=== PATIENT | female | born 1990 | race Caucasian/White ===

== ENCOUNTER 2019-06-30 20:56 | Inpatient (IN) | payer MEDICAID ==
[~2019-06-30] VITALS: Ht 160 cm; Wt 61.4 kg
[2019-07-02 14:50] VITALS: BP 128/86
== END 2019-07-02 15:05 | disposition home or self-care (01) | DRG 807 ==
LOC: LDOP 20:56 → LDIP 21:17 → 2NW 07-01 00:30
PROVIDERS: ADMIT Obstetrics & Gynecology Female Pelvic Medicine and Reconstructive Surgery; ATTEND Obstetrics & Gynecology Female Pelvic Medicine and Reconstructive Surgery
PROC: 10E0XZZ Delivery of Products of Conception, External Approach (ICD-10-PCS; principal; 2019-06-30)
PROC: 10907ZC Drainage of Amniotic Fluid, Therapeutic from Products of Conception, Via Natural or Artificial Opening (ICD-10-PCS; 2019-06-30)
PROC: 0HQ9XZZ Repair Perineum Skin, External Approach (ICD-10-PCS; 2019-06-30)
DX: O62.3 Precipitate labor (principal); Z37.0 Single live birth; O70.0 First degree perineal laceration during delivery; Z3A.40 40 weeks gestation of pregnancy
CPT/HCPCS: 36415; 80053; 80307; 81001; 82248; 82570; 82803; 84156; 84550; 85025; 86592; 86762; 86803; 86850; 86900; 87340; 87806; 88307; 90715; G0378; G0475; J2590; J7120

== ENCOUNTER 2021-02-12 16:15 | Inpatient (IN) | payer MEDICAID ==
[~2021-02-12] VITALS: Ht 160 cm; Wt 68.1 kg
[~2021-02-12 16:15] MED LIST: HYDR-3237 PO; IBUP-1223 PO; PREN1TAB98 PO
[2021-02-12] MEDS ORDERED: NEWBORN KIT ONE (16:18)
[2021-02-12] MEDS ORDERED: OXYTOCIN 10 UNITS/ML, 1ML ONE (16:19)
[2021-02-12] MEDS ORDERED: MISOPROSTOL 200 MCG TABLET ONE (16:19)
[2021-02-12] MEDS ORDERED: LIDOCAINE 1%, 20ML ONE (16:19)
[2021-02-12] MEDS ORDERED: MORPHINE SULFATE 4 MG/ML, 1ML ONE (16:43)
[2021-02-12] MEDS ORDERED: HYDROmorphone 2 MG/ML, 1ML ONE (16:44)
[2021-02-12] MEDS ORDERED: TERBUTALINE 1 MG/ML, 1ML SQ PRN (17:00)
[2021-02-12] MEDS ORDERED: TERBUTALINE 1 MG/ML, 1ML IVPush PRN ×2 (17:00)
[2021-02-12] MEDS ORDERED: METHYLERGONOVINE 0.2 MG/ML IM PRN ×2 (17:00→17:30)
[2021-02-12] MEDS ORDERED: ACETAMINOPHEN 325 MG TABLET PO PRN (17:30)
[2021-02-12] MEDS ORDERED: MISOPROSTOL 200 MCG TABLET PR PRN (17:30)
[2021-02-12] MEDS ORDERED: OXYcodone IR 5MG TABLET PO PRN (17:30)
[2021-02-12] MEDS ORDERED: DOCUSATE 100 MG CAPSULE PO PRN (17:30)
[2021-02-12] MEDS: IBUPROFEN 800 MG TABLET PO PRN (17:30)
[2021-02-12] MEDS ORDERED: SIMETHICONE 80 MG CHEW TAB PO PRN (17:30)
[2021-02-12] MEDS ORDERED: ONDANSETRON 2MG/ML, 2ML IV PRN (17:30)
[2021-02-12 17:32] VITALS: BP 146/87
[2021-02-12 17:38] LABS: BASOPHILS % (AUTO) 0 % (0-1); EOSINOPHILS % (AUTO) 0 % (1-7); LYMPHOCYTES % (AUTO) 7 % (22-44); MEAN CORPUSCULAR HEMOGLOBIN 29.6 pg (27.0-34.8); MEAN CORPUSCULAR HGB CONC 33.7 g/dL (32.4-35.8); MEAN PLATELET VOLUME 9.1 fL (7.4-10.4); MONOCYTES % (AUTO) 2 % (2-9); NEUTROPHILS % (AUTO) 90 % (42-75); PLATELET COUNT 249 x10^3/uL (130-400); RED BLOOD COUNT 4.07 x10^6/uL (3.82-5.3); RED CELL DISTRIBUTION WIDTH 12.9 % (9.6-15.2)
[2021-02-12 17:42] LABS: AMPHETAMINE SCREEN, URINE Negative (Negative); BARBITURATE SCREEN, URINE Negative (Negative); BENZODIAZEPINE SCREEN, URINE Negative (Negative); CANNABINOID SCREEN, URINE Negative (Negative); COCAINE SCREEN, URINE Negative (Negative); METHADONE SCREEN, URINE Negative (Negative); OPIATE SCREEN, URINE Positive (Negative)
[2021-02-12 17:58] LABS: MD SCAN
[2021-02-12] MEDS ORDERED: OXYTOCIN 30U/ 0.9% NaCL 500ML 500 ML IV ONE ×2 (18:00)
[2021-02-12] MEDS ORDERED: MISOPROSTOL 200 MCG TABLET PR ONE ×2 (18:00)
[2021-02-12] MEDS: LACTATED RINGERS 1,000 ML IV SCH (18:00)
[2021-02-12] MEDS: OXYTOCIN 30U/ 0.9% NaCL 500ML 500 ML IV SCH (18:00)
[2021-02-12] MEDS ORDERED: OXYTOCIN 10 UNITS/ML, 1ML IM ONE (18:00)
[2021-02-12 20:51] VITALS: BP 149/83
[2021-02-12] MEDS ORDERED: METHADONE 10 MG TABLET PO ONE (21:30)
[2021-02-13 01:04] VITALS: BP 142/89
[2021-02-13 01:17] LABS: BASOPHILS % (AUTO) 1 % (0-1); EOSINOPHILS % (AUTO) 0 % (1-7); LYMPHOCYTES % (AUTO) 10 % (22-44); MEAN CORPUSCULAR HEMOGLOBIN 29.9 pg (27.0-34.8); MEAN CORPUSCULAR HGB CONC 33.7 g/dL (32.4-35.8); MEAN PLATELET VOLUME 9.2 fL (7.4-10.4); MONOCYTES % (AUTO) 3 % (2-9); NEUTROPHILS % (AUTO) 86 % (42-75); PLATELET COUNT 216 x10^3/uL (130-400); RED BLOOD COUNT 3.58 x10^6/uL (3.82-5.3); RED CELL DISTRIBUTION WIDTH 13.4 % (9.6-15.2)
[2021-02-13 01:21] LABS: MD NO
[2021-02-13] MEDS: LACTATED RINGERS 1,000 ML IV SCH (02:00)
[2021-02-13] MEDS: OXYTOCIN 30U/ 0.9% NaCL 500ML 500 ML IV SCH (04:00)
[2021-02-13] MEDS: IBUPROFEN 800 MG TABLET PO PRN (04:14)
[2021-02-13 04:16] VITALS: BP 130/79
[2021-02-13 07:50] VITALS: BP 162/89
[2021-02-13 07:56] LABS: ALANINE AMINOTRANSFERASE 14 U/L (12-78); ALBUMIN 2.3 g/dL (3.4-5.0); ANION GAP 5 mmol/L (5-15); CALCIUM 8.5 mg/dL (8.5-10.1); CHLORIDE 109 mmol/L (98-107); CREATININE 0.83 mg/dL (0.55-1.02)
[2021-02-13 07:59] LABS: ALKALINE PHOSPHATASE 215 U/L (45-117); BILIRUBIN,TOTAL 0.2 mg/dL (0.2-1.0); TOTAL PROTEIN 6.3 g/dL (6.4-8.2)
[2021-02-13] MEDS ORDERED: PRENATAL VIT/IRON/FA 1 EACH TABLET PO SCH (09:00)
== END 2021-02-13 07:50 | disposition left against medical advice (07) | DRG 806 ==
LOC: LDOP 16:15 → LDIP 16:34 → 2NW 19:27
PROVIDERS: ADMIT Student in an Organized Health Care Education/Training Program; ATTEND Student in an Organized Health Care Education/Training Program
PROC: 10E0XZZ Delivery of Products of Conception, External Approach (ICD-10-PCS; principal; 2021-02-12)
PROC: 3E0D7GC Introduction of Other Therapeutic Substance into Mouth and Pharynx, Via Natural or Artificial Opening (ICD-10-PCS; 2021-02-12)
PROC: 0UQMXZZ Repair Vulva, External Approach (ICD-10-PCS; 2021-02-12)
DX: O99.324 Drug use complicating childbirth (principal); D62 Acute posthemorrhagic anemia; Z37.0 Single live birth; O13.4 Gestational [pregnancy-induced] hypertension without significant proteinuria, complicating childbirth; O99.02 Anemia complicating childbirth; F11.10 Opioid abuse, uncomplicated; Z3A.42 42 weeks gestation of pregnancy; O70.0 First degree perineal laceration during delivery; Z20.822 Contact with and (suspected) exposure to COVID-19; Z53.29 Procedure and treatment not carried out because of patient's decision for other reasons
CPT/HCPCS: 36415; 80053; 80307; 85025; 86592; 86762; 86803; 86850; 86900; 87340; 87635; 87806; G0378; G0475; J2210; J2590